=== PATIENT | female | born 1960 | race African-American/Black ===

== ENCOUNTER → 2019-11-07 | Outpatient (CLI) | payer MEDICARE, MEDICAID ==
[2019-11-07 15:29] LABS: ABSOLUTE EOSINOPHILS # (AUTO) 0.3 10^3/uL (0.0-0.6); ABSOLUTE LYMPHOCYTES (AUTO) 1.8 10^3/uL (0.5-4.7); ABSOLUTE MONOCYTES (AUTO) 0.5 10^3/uL (0.1-1.4); ABSOLUTE NEUT (AUTO) 1.6 10^3/uL (1.7-8.2); BASOPHILS % (AUTO) 1.1 % (0-2); HEMATOCRIT 42.5 % (36.0-47.0); HEMOGLOBIN 14.2 g/dL (12.0-15.5); LYMPHOCYTES % (AUTO) 43.1 % (13-45); MEAN CORPUSCULAR HEMOGLOBIN 29.7 pg (27.0-33.4); MEAN CORPUSCULAR HGB CONC 33.5 g/dL (32.0-36.0); MEAN CORPUSCULAR VOLUME 89 fl (80-97); MONOCYTES % (AUTO) 10.6 % (3-13); PLATELET COUNT 268 10^3/uL (150-450); RED BLOOD COUNT 4.79 10^6/uL (3.72-5.28); RED CELL DISTRIBUTION WIDTH 14.4 % (11.5-14.0); SEGMENTED NEUTROPHILS % (AUTO) 38.2 % (42-78); TOTAL CELLS COUNTED % (AUTO) 100 %; WHITE BLOOD COUNT 4.3 10^3/uL (4.0-10.5)
[2019-11-07 15:46] LABS: ALBUMIN 4.4 g/dL (3.5-5.0); ALKALINE PHOSPHATASE 64 U/L (38-126); ANION GAP 12 (5-19); ASPARTATE AMINO TRANSFERASE 21 U/L (14-36); BILIRUBIN,DIRECT 0.3 mg/dL (0.0-0.4); BILIRUBIN,TOTAL 0.3 mg/dL (0.2-1.3); BLOOD UREA NITROGEN 11 mg/dL (7-20); CALCIUM 10.3 mg/dL (8.4-10.2); CARBON DIOXIDE 28 mmol/L (22-30); CHLORIDE 103 mmol/L (98-107); GLUCOSE 153 mg/dL (75-110); TOTAL PROTEIN 7.5 g/dL (6.3-8.2)
== END ==
LOC: OD 15:00
PROVIDERS: ATTEND Surgery
DX: K86.2 Cyst of pancreas (principal)
CPT/HCPCS: 36415; 80053; 85025

== ENCOUNTER → 2019-11-14 | Outpatient (CLI) | payer MEDICARE, MEDICAID ==
--- NOTE | 2019-11-14 08:35 | RADIOLOGY REPORT (SQ) ---
EXAM DESCRIPTION: CT ABD/PELVIS WITH IV ORAL COMPLETED DATE/TIME: 11/14/2019 8:19 am REASON FOR STUDY: PANCREATIC CYST (K86.2) K86.2 CYST OF PANCREAS COMPARISON: None. TECHNIQUE: CT scan of the abdomen and pelvis performed using helical scanning technique with dynamic intravenous contrast injection. No oral contrast. Images reviewed with lung, soft tissue, and bone windows. Reconstructed coronal and sagittal MPR images reviewed. Delayed images for evaluation of the urinary system also acquired. All images stored on PACS. All CT scanners at this facility use dose modulation, iterative reconstruction, and/or weight based d osing when appropriate to reduce radiation dose to as low as reasonably achievable (ALARA). [facility]: Dose Right [facility]: CareDose [facility]: Dose Right [facility]: Teradose 4D [facility]: [employer] CONTRAST TYPE AND DOSE: contrast/concentration: Isovue 350.00 mg/ml; Total Contrast Delivered: 100.0 ml; Total Saline Delivered: 72.0 ml RENAL FUNCTION: BUN 11, creatinine 0.68 RADIATION DOSE: CT Rad equipment meets quality standard of care and radiation dose reduction techniq ues were employed. CTDIvol: 12.8 - 13.5 mGy. DLP: 1674 mGy-cm.. LIMITATIONS: None. FINDINGS: LOWER CHEST: No significant findings. No nodules or infiltrates. LIVER: There is a small cyst in the left lobe of liver. There is decreased attenuation throughout co nsistent with fatty infiltration. SPLEEN: Normal size. No focal lesions. PANCREAS: No masses or calcifications. Mild dilatation of the pancreatic duct. GALLBLADDER: No identified stones by CT criteria. No inflammatory changes to suggest cholecystitis. ADRENAL GLANDS: No significant masses or asymmetry. RIGHT KIDNEY AND URETER: No solid masses. No significant calcifications. No hydronephrosis or hyd roureter. LEFT KIDNEY AND URETER: No solid masses. No significant calcifications. No hydronephrosis or hydr oureter. AORTA AND VESSELS: No aneurysm. No dissection. Renal arteries, SMA, celiac without stenosis. RETROPERITONEUM: No retroperitoneal adenopathy, hemorrhage or masses. BOWEL AND PERITONEAL CAVITY: Numerous diverticuli. No acute diverticulitis. No inflammatory changes . APPENDIX: Normal. PELVIS: No mass. No free fluid. Normal bladder. ABDOMINAL WALL: There is an umbilical hernia containing omental fat only. BONES: No significant or acute findings. OTHER: No other significant finding. IMPRESSION: 1. Mild dilatation of the pancreatic duct. No focal masses or cysts. 2. Simple left hepatic lobe cyst. 3. Diverticular change involving the colon no acute diverticulitis. 4. Umbilical hernia containing omental fat only. TECHNICAL DOCUMENTATION: JOB ID: [id number] Quality ID # [id number]: Final reports with documentation of one or more dose reduction techniques (e.g., Au tomated exposure control, adjustment of the mA and/or kV according to patient size, use of iterative reconstruction technique) 2010 [employer]- All Rights Reserved Reading location - IP/workstation name: [email or web address]-
== END ==
LOC: RAD 07:34
PROVIDERS: ATTEND Surgery
DX: K86.2 Cyst of pancreas (principal)
CPT/HCPCS: 74177

== ENCOUNTER → 2020-03-08 | Outpatient (CLI) | payer MEDICARE, MEDICAID | LOC: WI 11:25 | PROVIDERS: ATTEND Nurse Practitioner Family | DX: Z12.31 Encounter for screening mammogram for malignant neoplasm of breast (principal) | CPT/HCPCS: 77063; 77067 ==

== ENCOUNTER → 2020-04-27 | Outpatient (CLI) | payer MEDICARE, MEDICAID ==
--- NOTE | 2020-04-27 13:18 | WOMENS IMAGING REPORT ---
EXAM DESCRIPTION: U/S BREAST UNILAT LIMITED IMAGES COMPLETED DATE/TIME: 04/27/2020 11:20 am REASON FOR STUDY: R92.2 INCONCLUSIVE MAMMOGRAM R92.2 INCONCLUSIVE MAMMOGRAM COMPARISON: Screening mammography 03/08/2020. Prior mammograms from 2018. TECHNIQUE: Static and Realtime grayscale interrogation of focal area(s) of concern in the right chiqui st(s) acquired. Selected color doppler/spectral images saved to PACS. LIMITATIONS: None. FINDINGS: Masses:Scanning between 2 and 4 o'clock. At approximately 3 o'clock in the superficial br east tissues is a 4 mm well-circumscribed oval anechoic mass consistent with a cyst. Architecture:No alteration of normal morphology. No skin thickening. No edema. Other: None. IMPRESSION: Small cyst in the region of interest. No suspicious features or findings. BIRAD: 1 Negative.. RECOMMENDATION: RECOMMENDED FOLLOW-UP: Yearly annual screening mammography. COMMENT: The [employer] ([employer]) has developed recommendations for screening MRI of the breasts in certain patient populations, to be used in conjunction with mammography. Breast MRI s urveillance may be appropriate for women with more than 20% lifetime risk of developing breast cancer as determined by genetic testing, significant family history of the disease, or history of mantle r adiation for Hodgkins Disease. [employer] Practice Guidelines 2008. TECHNICAL DOCUMENTATION: FINDING NUMBER: (1) ASSESSMENT: (1) JOB ID: [id number] 2010 [employer]- All Rights Reserved Reading location - IP/workstation name: [email or web address]
== END ==
LOC: WI 10:52
PROVIDERS: ATTEND Nurse Practitioner Family
DX: R92.2 Inconclusive mammogram (principal)
CPT/HCPCS: 76642

== ENCOUNTER 2020-05-10 06:46 | Day surgery (SDC) | payer MEDICARE, MEDICAID ==
[2020-05-07 10:55] LABS: HEMATOCRIT 40.8 % (36.0-47.0); HEMOGLOBIN 13.5 g/dL (12.0-15.5); MEAN CORPUSCULAR HEMOGLOBIN 29.5 pg (27.0-33.4); MEAN CORPUSCULAR HGB CONC 33.1 g/dL (32.0-36.0); MEAN CORPUSCULAR VOLUME 89 fl (80-97); PLATELET COUNT 250 10^3/uL (150-450); RED BLOOD COUNT 4.57 10^6/uL (3.72-5.28); RED CELL DISTRIBUTION WIDTH 14.2 % (11.5-14.0); WHITE BLOOD COUNT 4.5 10^3/uL (4.0-10.5)
--- NOTE | 2020-05-07 21:14 | EKG REPORT ---
SEVERITY:- BORDERLINE ECG - SINUS RHYTHM BORDERLINE T ABNORMALITIES, ANTERIOR LEADS : Confirmed by: Darrius Vargas MD 07-May-2020 21:13:53
[~2020-05-10 06:46] MED LIST: ACETAMINOPHEN 325 MG TABLET PO PRN; CEFAZOLIN 2 GM/D5W RTU 2 GM/50 ML RTUPB IV ONE; CEFAZOLIN 2 GM/D5W RTU 2 GM/50 ML RTUPB IV PRN; LACTATED RINGERS 1000 ML IV PRN; LIDOCAINE 0.5% INJ-PF (5 MG/ML) 50 ML SDV SUBCUT PRN
[2020-05-10] MEDS ORDERED: INSULIN REG, HUMAN 100 UNIT/ML 3 ML VIAL (PYX) ONE (07:34)
[2020-05-10] MEDS ORDERED: SUCCINYLCHOLINE CHLORIDE INJ 200 MG/10 ML VIAL ONE (08:23)
[2020-05-10] MEDS ORDERED: ONDANSETRON HCL INJ/PF 4 MG/2 ML SDV ONE (08:23)
[2020-05-10] MEDS ORDERED: GLYCOPYRROLATE 1 MG/5 ML VIAL ONE (08:23)
[2020-05-10] MEDS ORDERED: ROCURONIUM BROMIDE INJ 50 MG/5 ML VIAL IV ONE (08:23)
[2020-05-10] MEDS ORDERED: KETOROLAC TROMETHAMINE 60 MG/2 ML SDV ONE (08:23)
[2020-05-10] MEDS ORDERED: NEOSTIGMINE METHYLSULFATE 10 MG/10 ML VIAL ONE (08:23)
[2020-05-10] MEDS ORDERED: PROPOFOL INJ 200 MG/20 ML VIAL IV ONE (08:28)
[2020-05-10] MEDS ORDERED: MIDAZOLAM 2 MG/2 ML INJ ONE (08:28)
[2020-05-10] MEDS ORDERED: FENTANYL CITRATE INJ/PF 100 MCG/2 ML AMPUL ONE (08:28)
[2020-05-10] MEDS ORDERED: BUPIVACAINE INJ/PF LIPOSOME/PF 266 MG/20 ML SDV ONE (08:39)
[2020-05-10] MEDS ORDERED: FENTANYL CITRATE INJ/PF 100 MCG/2 ML AMPUL IV PRN ×3 (08:57)
[2020-05-10] MEDS ORDERED: MEPERIDINE HCL/PF INJ 25 MG/1 ML DISP.SYRIN IV PRN (08:57)
[2020-05-10] MEDS ORDERED: DIPHENHYDRAMINE HCL 50 MG/ML VIAL IV PRN (08:57)
[2020-05-10] MEDS: FENTANYL CITRATE INJ/PF 100 MCG/2 ML AMPUL ONE ×2 (10:10→10:20)
--- NOTE | 2020-05-10 10:21 | Operative Report ---
Nonrecallable Operative Report DATE OF SURGERY: 05/10/20 PREOPERATIVE DIAGNOSIS: ventral hernia POSTOPERATIVE DIAGNOSIS: ventral hernia OPERATION: laparoscopic repair of ventral hernia SURGEON: ADRIAN MOTLEY ANESTHESIA: GA TISSUE REMOVED OR ALTERED: none COMPLICATIONS: none ESTIMATED BLOOD LOSS: 10cc INTRAOPERATIVE FINDINGS: multiple small ventral hernia defects PROCEDURE: Patient was brought to the operating awake alert in stable condition placed in the operating table supine position induced under general anesthesia intubated. The abdomen was prepped draped in usual sterile fashion for the procedure. After appropriate timeout site verification procedure commenced. A varies needle was placed in the left upper quadrant subcostal at Yin's point and into the abdominal cavity it was insufflated 6 L of CO2 gas. A 5 mm incision was made at that point and a 5 mm port placed in the abdominal cavity intra-abdominal visualization with a 5 mm scope revealed no evidence of Veress needle or trocar injury. There are multiple anterior abdominal wall adhesions of omentum therefore we were able under direct vision to place a left lower quadrant 5 mm port. Then we were able to place another 5 mm port on the right lower quadrant. Under direct vision. The left upper quadrant port was changed over to a 10 mm port under direct vision. The adhesions were taken down off the intra-abdominal wall with sharp and blunt dissection with the LigaSure device. The and cut the multiple small ventral hernia defects at the midline were cleared of the incarcerated preperitoneal fat. Once this was done a piece of ventral X mesh approximately 8 x 10 cm oval was fashioned with circumferentially placed Vicryl sutures rolled up and placed into the abdominal cavity through the 10 mm port site. The Vicryl sutures were then grasped with a suture passer through the anterior abdominal wall and pulled up so that the mesh was sitting on the anterior abdominal wall. The mesh was then fixed from the inside to the anterior abdominal wall with circumferentially placed absorb attacks. This completely covered the ventral hernia as it with at least 4 cm overlap. Once this was done the pneumoperitoneum was reduced. The skin incisions were closed with intracuticular 4-0 Monocryl and Steri-Strips completed the procedure. The patient was awakened in the operative extubated transferred recovery stable condition no complications. Sponge needle counts were correct x2. LU Encinas was present for the entire case for help with wound retraction wound closure
[2020-05-10] MEDS ORDERED: KETOROLAC TROMETHAMINE INJ/PF 30 MG/1 ML SDV IV PRN (10:24)
--- NOTE | 2020-05-10 10:24 | Discharge Summary ---
Discharge Summary (SDC) - Discharge Final Diagnosis: ventral hernia Date of Surgery: 05/10/20 Discharge Date: 05/10/20 Condition: Good Prescriptions: Hydrocodone/Acetaminophen [[place] 10-325 mg Tablet] 1 tab PO Q6HP PRN #15 tablet PRN Reason: Referrals: RICHARD FISHER DISTRIBUTOR SALES MANAGER [Primary Care Provider] - Discharge Activity: Activity As Tolerated, No Lifting Over 10 Pounds, Slowly Increase Activity Report the Following to Your Physician Immediately: Shortness of Breath, Unusual Bleeding - pt needs f/u in surgery clinic in 2 wks., Large Clots
[2020-05-10] MEDS ORDERED: OXYCODONE-ACETAMINOPHEN 5-325 MG TABLET PO PRN (10:25)
[2020-05-10] MEDS ORDERED: KETOROLAC TROMETHAMINE INJ/PF 30 MG/1 ML SDV ONE (10:31)
[2020-05-10] MEDS ORDERED: OXYCODONE-ACETAMINOPHEN 5-325 MG TABLET ONE (11:11)
[2020-05-10 12:54] VITALS: BP 123/77
== END 2020-05-10 12:20 | disposition home or self-care (01) ==
LOC: OROUT 06:46
PROVIDERS: ATTEND Surgery
DX: K43.9 Ventral hernia without obstruction or gangrene (principal); Z03.818 Encounter for observation for suspected exposure to other biological agents ruled out; I10 Essential (primary) hypertension; E11.9 Type 2 diabetes mellitus without complications; E66.9 Obesity, unspecified
CPT/HCPCS: 49652; 93005; 93010; 36415; 82962; 85027; U0003; J2250; J3010; J1885; A9270 ×2; J2704; J0690; C9290; C9803; 87635; C1713; C1781; J0330; J1815; J2405; J2710; J3490

== ENCOUNTER → 2020-07-31 | Outpatient (CLI) | payer MEDICARE, MEDICAID ==
--- NOTE | 2020-07-31 13:15 | RADIOLOGY REPORT (SQ) ---
EXAM DESCRIPTION: LUMBAR SPINE COMPLETE IMAGES COMPLETED DATE/TIME: 07/31/2020 12:47 pm REASON FOR STUDY: LUMBAGO WITH SCIATICA, UNSPECIFIED SIDE M54.40 LUMBAGO WITH SCIATICA, UNSPECIFIED SIDE COMPARISON: None. NUMBER OF VIEWS: Five views including obliques. TECHNIQUE: AP, lateral, oblique, and sacral radiographic images acquired of the lumbar spine. LIMITATIONS: None. FINDINGS: MINERALIZATION: Normal. SEGMENTATION: Normal. No transitional anatomy. ALIGNMENT: Mild scoliosis with concavity toward the right. This could be positional. VERTEBRAE: Maintained height. No fracture or worrisome bone lesion. DISCS: Mild disc space narrowing at L4-L5 and L5-S1. POSTERIOR ELEMENTS: Pedicles and facets are intact. No pars defect or posterior arch defects. HARDWARE: None in the spine. PARASPINAL SOFT TISSUES: Normal. PELVIS: Intact as visualized. No fractures or worrisome bone lesions. SI joints intact. OTHER: No other significant finding. IMPRESSION: Mild disc degenerative disease at L4-L5 and L5-S1. Very mild lumbar scoliosis with conc avity toward the right. This could be positional. TECHNICAL DOCUMENTATION: JOB ID: [id number] [employer]- All Rights Reserved Reading location - IP/workstation name: [email or web address]
== END ==
LOC: OD 12:04
PROVIDERS: ATTEND Nurse Practitioner Family
DX: M54.40 Lumbago with sciatica, unspecified side (principal)
CPT/HCPCS: 72110